=== PATIENT | female | born 1970 | race Caucasian/White ===

== ENCOUNTER 2023-02-25 11:35 | Emergency (ER) | payer SELFPAY ==
[~2023-02-25] VITALS: Ht 165.1 cm; Wt 90.0 kg
[2023-02-25 11:59] VITALS: O2SAT 100
[2023-02-25] MEDS ORDERED: IBUP-2028 MT (14:46)
[2023-02-25] MEDS ORDERED: CLIN-26 MT (14:46)
[2023-02-25 15:24] VITALS: BP 129/100; PULSE 106; RESP 18; TEMP 98.5
== END 2023-02-25 15:25 | disposition home or self-care (01) ==
LOC: ER 12:46
DX: K04.7 Periapical abscess without sinus (principal); E11.9 Type 2 diabetes mellitus without complications; Z98.890 Other specified postprocedural states
CPT/HCPCS: 99283